=== PATIENT | female | born 1935 | race Caucasian/White ===

== ENCOUNTER → 2016-05-30 | Day surgery (SDC) | payer OTHER ==
[~2016-05-30] MED LIST: ATOR40TA PO; BUPIVACAINE/EPINEPHRINE 0.5% PF 30 ML VIAL ONE; CLON.2 PO; HYDR12.56 PO; LACTATED RINGER'S 1000 ML INJ 1,000 ML ONE; LISI-366 PO; MEPERIDINE HCL 25 MG/ML VIAL ONE; METF500 PO; METO100T PO; MIDAZOLAM HCL 2 MG/2 ML VIAL ONE; ONDANSETRON HCL 4 MG/2 ML VIAL IV PUSH ONE; PROPOFOL 200 MG/20 ML AMP IV ONE; ZOFR4TAB3 SL; ceFAZolin INJ 1,000 MG VIAL ONE; metroNIDAZOLE 500 MG INJ 100 ML IV ONE
--- NOTE | 2016-05-30 10:11 | TN ---
cc: WILFREDO CALDERA M.D., ZAW BIANCHI, JOSEPH D. M.D. DATE OF SURGERY 05/30/2016 PREOPERATIVE DIAGNOSIS Cholelithiasis, cholecystitis, gallbladder dyskinesia. POSTOPERATIVE DIAGNOSIS Cholelithiasis, cholecystitis, gallbladder dyskinesia. PROCEDURE Laparoscopic cholecystectomy ANESTHESIA General SURGEON Dr. Ferreira CREDIT RISK OFFICER Ms. Lupe Harris SLIME The FELL CUTTER was present from beginning to the end of the case assisting in all portions of the procedure. It was necessary to have this individual in the room to assist in the above surgical procedure. The surgical procedure was assisted by the FELL CUTTER. The FELL CUTTER presence was necessary throughout the case for appropriate retraction, dissection, visualization, and resection of the important anatomical structures during the surgical procedure. The FELL CUTTER was assisting throughout the entirety of the operation. The skill set of the FELL CUTTER is medically and surgically necessary to safely complete the surgical procedure. During the surgical case the operating room surgical elastic knitter was working instrument table and passing instruments to the attending surgeon and FELL CUTTER The FELL CUTTER was directly assisting the operating surgeon and involved in the technical aspects of the surgical case. INDICATIONS This is a pleasant elderly female who is had a 15 pound weight loss. She had an abnormal HIDA scan. CT scan which showed gallstones and she was evaluated by the manager games. She felt she had signs and symptoms and would benefit from a cholecystectomy and I was in agreement. Plans were made for above. PROCEDURE The patient was taken to the operating room, placed in the supine position. After general anesthesia, her abdomen was prepped with Betadine, a time was done. She has got preoperative antibiotics. We made an incision just below the umbilicus. A Veress needle was inserted, saline load test was performed. The abdomen was insufflated with 15 mmHg. A 10-mm trocar was introduced. The camera was introduced. Three other 5-mm ports were then placed one below the xyphoid, one in between two previously placed ports and a third working port in the right lower quadrant because the left lobe of the liver was rather large and needs to be retracted to facilitate exposure of the cystic duct/cystic artery. When this was done, we are able to grasp the gallbladder superiorly and laterally identifying the cystic duct, cystic artery and both were doubly ligated after identifying them very clearly. The gallbladder was then dissected off the gallbladder bed, placed in an EndoCatch and pulled out through the umbilical incision and passed off the field. We then irrigate copiously. No other gross abnormalities seen in the abdomen. The liver was smooth. The peritoneal surfaces were smooth. There was excellent hemostasis without biliary leakage. We then remove the CO2, remove the irrigating solution and the fascia of the 10 mm port was closed with a 0 Vicryl and skin at all four sites were closed with a 4-0 Vicryl. Steri-Strips applied. Sterile bandage applied. The patient tolerated the procedure well and had no immediate postop complications. MD TOR Lakhani/BRITTANY /9:54 AM /10:02 AM MTDAnmol
== END | disposition home or self-care (01) ==
LOC: ESDC 07:20
PROVIDERS: ATTEND Surgery
DX: K80.10 Calculus of gallbladder with chronic cholecystitis without obstruction (principal)
CPT/HCPCS: 00790; 47562; 88304; J0690; J2175; J2250; J2405; J3010; J7120